=== PATIENT | female | born 1970 | race Two or more races ===

== ENCOUNTER 2022-11-20 11:10 | Emergency (ER) | payer SELFPAY ==
[~2022-11-20] VITALS: Ht 152.4 cm; Wt 60.6 kg
[2022-11-20] MEDS ORDERED: SODIUM CHLORIDE 0.9% 1,000 ML IV ONE ×2 (11:30→11:45)
[2022-11-20] MEDS ORDERED: ONDANSETRON HCL 4 MG/2 ML VIAL IV ONE ×3 (11:30→15:00)
[2022-11-20] MEDS ORDERED: LORazepam 2MG/ML-1ML VIAL IV ONE (11:45)
[2022-11-20 11:58] LABS: Basophils # (auto) 0 10 ^3/uL (0-0.2); Basophils % (auto) 0.6 % (0.0-2.0); Eosinophils # (auto) 0.1 10 ^3/uL (0-0.8); Eosinophils % (auto) 1.1 % (0.0-7.0); Hematocrit 42.2 % (36.0-46.0); Hemoglobin 14.3 g/dL (12.2-16.2); Lymphocytes # (auto) 1.2 10 ^3/uL (0.4-5.4); Lymphocytes % (auto) 14.8 % (10.0-50.0); Mean Corpuscular Hemoglobin 31.3 pg (28.0-32.0); Mean Corpuscular Hgb Conc. 33.8 g/dL (32.0-36.0); Mean Corpuscular Volume 92.6 fL (80.0-100.0); Monocytes # (auto) 0.4 10 ^3/uL (0-1.3); Monocytes % (auto) 4.7 % (0.0-12.0); Neutrophils # (auto) 6.3 10 ^3/uL (1.6-8.6); Neutrophils % (auto) 78.8 % (37.0-80.0); Red Blood Cells 4.56 10^6/uL (4.0-5.20); Red Cell Distribution Width 13.1 % (11.8-14.3)
[2022-11-20 12:32] LABS: Albumin 3.8 g/dL (3.4-5.0); Calcium 8.9 mg/dL (8.5-10.1); Potassium 3.6 mmol/L (3.5-5.1)
[2022-11-20 12:38] LABS: BUN/Creatinine Ratio 22.1 (10.0-20.0); Bilirubin, Total 0.4 mg/dL (0.2-1.0); Total Protein 7.5 g/dL (6.4-8.2)
[2022-11-20 12:51] LABS: Urine Bacteria FEW /hpf (None Seen); Urine Blood Negative /uL (Negative); Urine Mucus FEW (None Seen); Urine Specific Gravity 1.024 (1.001-1.035); Urine WBC 15 /hpf (0 - 5)
[2022-11-20] MEDS ORDERED: diphenhdrAMINE HCL 50 MG/1 ML VL IV ONE ×2 (15:00)
[2022-11-20] MEDS ORDERED: ZOFR4T PO (15:17)
[2022-11-20 16:00] VITALS: BP 92/52
== END 2022-11-20 16:48 | disposition home or self-care (01) ==
LOC: ER 11:10
DX: H83.2X1 Labyrinthine dysfunction, right ear (principal); R11.2 Nausea with vomiting, unspecified; R10.2 Pelvic and perineal pain
CPT/HCPCS: 36415; 70450; 80053; 81001; 84702; 85025; 93005; 96361; 96374; 96375; 96376; 99285; J1200; J2060; J2405; J7030